=== PATIENT | male | born 1975 | race Two or more races ===

== ENCOUNTER 2022-08-02 14:31 | Emergency (ER) | payer OTHER ==
[~2022-08-02] VITALS: Ht 170.2 cm; Wt 35.4 kg
--- NOTE | 2022-08-02 15:18 | NUR ---
PT IN BED 7 TOLORATING ROOM AIR 98% O2SAT. C/O DIARRHEA AND STEATORRHEA WEIGHT LOSS AND WEAKNESS. Hx OF AUTISUM BROTHER AT BEDSIDE. IN BED CHANGED INTOA GOWN, PLACED IN FOWLERS POSTION SIDERAILS UP.
[2022-08-02] MEDS ORDERED: IV NS 0.9% 1,000 ML BAG IV ONE (15:30)
[2022-08-02 15:53] LABS: BASOPHILS % (AUTO) 0.1 % (0.0-2.0); HEMATOCRIT 37 % (39-51); HEMOGLOBIN 12.5 g/dL (13.5-17.5); LYMPHOCYTES # (AUTO) 0.5 K/uL (0.8-4.8); LYMPHOCYTES % (AUTO) 6.5 % (20.0-44.0); MEAN CORPUSCULAR HGB CONC 34 g/dl (31.0-36.0); MEAN CORPUSCULAR VOLUME 93 fL (80-96); MONOCYTES # (AUTO) 0.4 K/uL (0.1-1.30); NEUTROPHILS # (AUTO) 7.3 K/uL (1.8-8.9); NEUTROPHILS % (AUTO) 88.4 % (43.0-81.0); PLATELET COUNT (AUTO) 238 K/uL (150-450); RED BLOOD CELL COUNT(AUTO) 3.96 MIL/uL (4.5-6.0); WHITE BLOOD COUNT (AUTO) 8.3 K/uL (4.3-11.0)
--- NOTE | 2022-08-02 16:00 | NUR ---
ekg done blood drawn.
[2022-08-02 16:01] LABS: CALCIUM, SERUM 9.1 mg/dL (8.5-10.1); CARBON DIOXIDE 32 mmol/L (21-32); CHLORIDE 100 mmol/L (98-107); CREATININE 1.2 mg/dL (0.6-1.3); GLUCOSE 184 mg/dL (74-106); POTASSIUM 4.2 mmol/L (3.5-5.1); SODIUM SERUM 134 mmol/L (136-145); UREA NITROGEN, BLOOD 27 mg/dL (7-18)
[2022-08-02 16:07] LABS: ALANINE AMINOTRANSFERASE 317 U/L (12-78); ALBUMIN 3.2 g/dL (3.4-5.0); ALKALINE PHOSPHATASE 142 U/L (46-116); ASPARTATE AMINOTRANSFERASE 197 U/L (15-37); BILIRUBIN,DIRECT 0.1 mg/dL (0.0-0.2); BILIRUBIN,TOTAL 0.3 mg/dL (0.2-1.0); LIPASE 163 U/L (73-393); TOTAL PROTEIN, SERUM 6.7 g/dL (6.4-8.2)
--- NOTE | 2022-08-02 16:51 | NUR ---
NS INFUSION STARTED 1551, END TIME 1651. 1000ML INFUSED OVER 1 HOUR NO COMPLICATIONS NOTED.
[2022-08-02 17:09] VITALS: BP 114/72
== END 2022-08-02 17:10 | disposition home or self-care (01) ==
LOC: ER 14:40
DX: R53.1 Weakness (principal)
CPT/HCPCS: 99285; 96360; 71045; 93005; 85025; 80048; 83690; 80076; 36415; 84484; 82962; J7030